=== PATIENT | female | born 1970 ===

== ENCOUNTER 2020-11-15 17:46 | Outpatient (REF) | payer BC, SELFPAY | END 2020-11-15 17:47 | disposition home or self-care (01) | LOC: NCHCN 17:46 | PROVIDERS: Visit Provider Nurse Practitioner Family | DX: N39.0 Urinary tract infection, site not specified (principal) | CPT/HCPCS: 87077; 87086; 87186 ==

== ENCOUNTER 2020-11-30 23:57 | Outpatient (REF) | payer BC, SELFPAY | END 2020-11-30 23:58 | disposition home or self-care (01) | LOC: NCHCN 23:57 | PROVIDERS: Visit Provider Family Medicine | DX: R30.0 Dysuria (principal) | CPT/HCPCS: 87086 ==

== ENCOUNTER 2022-02-07 15:29 | Outpatient (REF) | payer OTHER, SELFPAY ==
[2022-02-07 21:42] LABS: Bilirubin Negative (Negative); Blood Large (Negative); Clarity Sl Cloudy (Clear); Glucose Negative (Negative); Ketones Negative (Negative); Leukocyte Esterase Large (Negative); Nitrite Negative (Negative); Specific Gravity 1.015 (1.005-1.025); Urobilinogen 0.2 EU/dL (Up TO 0.2)
[2022-02-07 21:43] LABS: C & S Indicated? C&S Done As Ordered
[2022-02-07 22:19] LABS: Bacteria Negative HPF (Negative); Casts Negative LPF (Negative); Crystals Negative HPF (Negative); Epithelial Cells Few HPF (Negative); Mucus Negative (Negative); Other Cells Few Renal (Negative); RBC >50 HPF (0-2); WBC >50 HPF (0-5)
== END 2022-02-07 15:30 | disposition home or self-care (01) ==
LOC: LBN 15:29
PROVIDERS: Visit Provider Nurse Practitioner Family
DX: N30.00 Acute cystitis without hematuria (principal)
CPT/HCPCS: 87077; 81003; 81015; 87086; 87186

== ENCOUNTER 2023-10-24 15:37 | Outpatient (REF) | payer OTHER, SELFPAY ==
[2023-10-24 16:32] LABS: Bilirubin Negative (Negative); Blood Negative (Negative); Clarity Clear (Clear); Glucose Negative (Negative); Ketones Negative (Negative); Leukocyte Esterase Negative (Negative); Nitrite Negative (Negative); Specific Gravity 1.015 (1.005-1.025); Urobilinogen 0.2 mg/dL (Up to 0.2)
== END 2023-10-24 15:38 | disposition home or self-care (01) ==
LOC: LBN 15:37
PROVIDERS: Visit Provider Family Medicine
DX: R30.0 Dysuria (principal)
CPT/HCPCS: 81003

== ENCOUNTER 2024-05-31 17:40 | Outpatient (REF) | payer OTHER, SELFPAY | END 2024-05-31 17:41 | disposition home or self-care (01) | LOC: LBN 17:40 | PROVIDERS: Visit Provider Nurse Practitioner Family | DX: N76.0 Acute vaginitis (principal) | CPT/HCPCS: 87480; 87510; 87660 ==

== ENCOUNTER 2025-04-09 16:39 | Outpatient (CLI) | payer OTHER, SELFPAY ==
[2025-04-09 17:29] LABS: Calculated LDL 108 mg/dL (<100); Cholesterol 187 mg/dL (<200); HDL Cholesterol 57 mg/dL (>or=50); Triglyceride 113 mg/dL (<150)
== END 2025-04-09 16:40 | disposition home or self-care (01) ==
LOC: LBO 16:40
PROVIDERS: Visit Provider Internal Medicine
DX: Z00.00 Encounter for general adult medical examination without abnormal findings (principal)
CPT/HCPCS: 36415; 80061